=== PATIENT | female | born 1950 | race Caucasian/White ===

== ENCOUNTER → 2018-06-08 | Outpatient (CLI) | payer MEDICARE ==
[~2018-06-08] MED LIST: AZEL23SP INH; BIOT300T3 PO; CALC-112 PO; LYSI500T25 PO; OMEG1CAP26 PO; ROSU5TAB PO; UBID50TA3 PO
[2018-06-08 15:07] LABS: BASOPHILS # (AUTO) 0.06 x10^3/uL (0-0.1); BASOPHILS % (AUTO) 1 % (0-1); EOSINOPHILS # (AUTO) 0.05 x10^3/uL (0-0.4); EOSINOPHILS % (AUTO) 1 % (1-7); LYMPHOCYTES # (AUTO) 2.19 x10^3/uL (1-3.4); LYMPHOCYTES % (AUTO) 30 % (22-44); MD NO; MEAN CORPUSCULAR HEMOGLOBIN 32.9 pg (27.0-34.8); MEAN CORPUSCULAR HGB CONC 33.8 g/dL (32.4-35.8); MEAN CORPUSCULAR VOLUME 97.1 fL (80-100); MEAN PLATELET VOLUME 7.6 fL (7.4-10.4); MONOCYTES # (AUTO) 0.41 x10^3/uL (0.2-0.8); MONOCYTES % (AUTO) 6 % (2-9); NEUTROPHILS # (AUTO) 4.53 x10^3/uL (1.8-6.8); NEUTROPHILS % (AUTO) 63 % (42-75); PLATELET COUNT 224 x10^3/uL (130-400); RED BLOOD COUNT 4.16 x10^6/uL (3.82-5.3); RED CELL DISTRIBUTION WIDTH 13.5 % (9.6-15.2)
[2018-06-08 15:15] LABS: ANION GAP 7 mmol/L (5-15); CALCIUM 9.4 mg/dL (8.5-10.1); CHLORIDE 106 mmol/L (98-107); CREATININE 1.03 mg/dL (0.55-1.02)
[2018-06-08 15:18] LABS: MICROSCOPIC NOT IND
[2018-06-08 15:24] LABS: CULTURE INDICATED? NO
== END | disposition home or self-care (01) ==
LOC: STAR 14:02
PROVIDERS: ATTEND Obstetrics & Gynecology Gynecology
DX: Z01.818 Encounter for other preprocedural examination (principal); C56.2 Malignant neoplasm of left ovary
CPT/HCPCS: 36415; 71046; 80048; 81003; 85025; 93005

== ENCOUNTER 2018-06-12 05:19 | Day surgery (SDC) | payer MEDICARE ==
[~2018-06-12] VITALS: Ht 166.4 cm; Wt 58.4 kg
[~2018-06-12 05:19] MED LIST changes: +ACETAMINOPHEN 500 MG TABLET PO ONE; +DIAZEPAM 5 MG TABLET PO ONE; +GABAPENTIN 300 MG CAPSULE PO ONE
[2018-06-12] MEDS ORDERED: LACTATED RINGERS 1,000 ML IV SCH (05:46)
[2018-06-12] MEDS ORDERED: ACETAMINOPHEN 500 MG TABLET PO ONE (06:00)
[2018-06-12] MEDS ORDERED: GABAPENTIN 300 MG CAPSULE PO ONE (06:00)
[2018-06-12] MEDS ORDERED: DIAZEPAM 5 MG TABLET PO ONE (06:00)
[2018-06-12 06:17] VITALS: BP 106/68
[2018-06-12] MEDS ORDERED: FLUORESCEIN SODIUM 500 MG/5 ML ONE (06:36)
[2018-06-12] MEDS ORDERED: LIDOCAINE 1%-EPI 1:100K, 20ML ONE (06:36)
[2018-06-12] MEDS ORDERED: SILVER NITRATE STICK TP ONE (06:36)
[2018-06-12] MEDS ORDERED: MIDAZOLAM 1 MG/ML, 2ML ONE (06:54)
[2018-06-12] MEDS ORDERED: FENTANYL PF 250 MCG/5ML ONE (06:55)
[2018-06-12] MEDS ORDERED: PHENYLEPHRINE 10 MG/ML ONE (06:57)
[2018-06-12] MEDS ORDERED: KETOROLAC 30 MG/1 ML ONE (07:18)
[2018-06-12] MEDS ORDERED: FENTANYL PF 100 MCG/2ML IV PRN (07:30)
[2018-06-12] MEDS ORDERED: DIAZEPAM 5 MG/ML, 2ML IVPush PRN (07:30)
[2018-06-12] MEDS ORDERED: HYDROmorphone 2 MG/ML, 1ML IVPush PRN (07:30)
[2018-06-12] MEDS ORDERED: ALBUTEROL/IPRATROPIUM 2.5MG/0.5MG, 3 ML NPPB PRN (07:30)
[2018-06-12] MEDS ORDERED: MEPERIDINE/PF 25MG/0.5ML IVPush PRN (07:30)
[2018-06-12] MEDS ORDERED: MIDAZOLAM 1 MG/ML, 2ML IV PRN (07:30)
[2018-06-12] MEDS ORDERED: ONDANSETRON 2MG/ML, 2ML IV PRN (07:30)
[2018-06-12] MEDS ORDERED: OXYcodone 5 MG/5 ML ORAL.SOL UDC PO PRN (07:30)
[2018-06-12] MEDS ORDERED: PROMETHAZINE 25 MG/ML, 1ML IV PRN (07:30)
[2018-06-12] MEDS ORDERED: SCOPOLAMINE PATCH, 1.5MG PATCH.TD72 TD PRN (07:30)
[2018-06-12] MEDS ORDERED: ONDANSETRON 2MG/ML, 2ML ONE (07:56)
[2018-06-12] MEDS ORDERED: DEXAMETHASONE 4 MG/ML, 1ML ONE (07:56)
[2018-06-12] MEDS ORDERED: NEOSTIGMINE 1 MG/ML, 10ML ONE (07:56)
[2018-06-12] MEDS ORDERED: ROCURONIUM 10MG/ML,5ML ONE (07:56)
[2018-06-12] MEDS ORDERED: GLYCOPYRROLATE 0.2MG/1ML, 5ML ONE (07:56)
[2018-06-12] MEDS ORDERED: PROPOFOL 10 MG/ML, 20ML ONE (07:56)
[2018-06-12] MEDS ORDERED: SUCCINYLCHOLINE 20 MG/ML, 10ML ONE (07:56)
== END 2018-06-12 11:10 | disposition home or self-care (01) ==
LOC: OUT 05:19
PROVIDERS: ATTEND Obstetrics & Gynecology Gynecology
DX: D27.1 Benign neoplasm of left ovary (principal); K21.9 Gastro-esophageal reflux disease without esophagitis; E78.5 Hyperlipidemia, unspecified; Z90.49 Acquired absence of other specified parts of digestive tract
CPT/HCPCS: 58661; 88112; 88305; J0330; J1100; J1885; J2250; J2370; J2405; J2704; J2710; J3010; J3490; J7120

== ENCOUNTER → 2020-05-09 | Outpatient (CLI) | payer MEDICARE ==
[~2020-05-09] MED LIST changes: -ACETAMINOPHEN 500 MG TABLET PO ONE; -BIOT300T3 PO; +BIOT300T5 PO; -DIAZEPAM 5 MG TABLET PO ONE; -GABAPENTIN 300 MG CAPSULE PO ONE
== END | disposition home or self-care (01) ==
LOC: CFH 11:26
PROVIDERS: ATTEND Family Medicine
DX: M85.80 Other specified disorders of bone density and structure, unspecified site (principal); N95.9 Unspecified menopausal and perimenopausal disorder
CPT/HCPCS: 77080